=== PATIENT | female | born 1970 | race Caucasian/White ===

== ENCOUNTER 2018-11-17 08:25 | Emergency (ER) | payer SELFPAY ==
[~2018-11-17] VITALS: Ht 160 cm; Wt 75.0 kg
[2018-11-17] MEDS: CYCLOBENZAPRINE HCL 10 MG TABLET PO ONE (08:59)
[2018-11-17] MEDS: KETOROLAC TROMETHAMINE 60 MG/2 ML VIAL IM ONE (10:01)
[2018-11-17 10:10] VITALS: BP 127/76
== END 2018-11-17 10:14 | disposition home or self-care (01) ==
LOC: EMS 08:25
DX: S09.90XA Unspecified injury of head, initial encounter (principal); M54.2 Cervicalgia; V43.52XA Car driver injured in collision with other type car in traffic accident, initial encounter; Y93.89 Activity, other specified; Y92.411 Interstate highway as the place of occurrence of the external cause; Y99.8 Other external cause status
CPT/HCPCS: 70450; 72125; 96372; 99284; J1885